=== PATIENT | male | born 1970 | race Caucasian/White ===

== ENCOUNTER → 2022-08-25 | Outpatient (CLI) | payer OTHER | LOC: M RAD 08-10 07:34 | PROVIDERS: ATTEND Physician Assistant | DX: R74.8 Abnormal levels of other serum enzymes (principal) ==

== ENCOUNTER 2024-09-19 08:26 | Day surgery (SDC) | payer OTHER ==
[~2024-09-19] VITALS: Ht 172.7 cm; Wt 120.7 kg
[~2024-09-19 08:26] MED LIST: MIRT45TA68 PO
[2024-09-19] MEDS ORDERED: propofoL 200 MG/20 ML VIAL As Ordered ONE (09:25)
[2024-09-19 09:41] VITALS: TEMP 97.6
[2024-09-19 10:01] VITALS: BP 127/71; O2SAT 98
== END 2024-09-19 10:19 | disposition home or self-care (01) ==
LOC: M OPP 08:26
PROVIDERS: ATTEND Surgery
DX: R19.4 Change in bowel habit (principal); G47.9 Sleep disorder, unspecified; Z79.899 Other long term (current) drug therapy